=== PATIENT | male | born 1945 | race Caucasian/White ===

== ENCOUNTER 2016-10-12 17:51 | Inpatient (IN) | payer MEDICARE, BC ==
[~2016-10-12 17:51] MED LIST: ADVAIR 25028 BLISTER INH; ALDACTONE25 M1 PO; ALLOPURINOL300 MG PO; AMIODARONE HCL200 M1 PO; AMIODARONE HCL400 MG PO; ANTACID650 MG PO; ANUSOL HC25 MG/SUPP PR; ASPIR-LOW81 MG PO; B-1100 MG PO; BALNEOL CLEANSI89 ML EXT; CHLORASEPTIC LO2 LOZ MM; CORGARD20 M2 PO; CORGARD40 MG PO; COZAAR50 MG PO; CRESTOR5 MG PO; DILTIAZEM 2%; DILTIAZEM 24HR120 MG PO; DILTIAZEM ER120 M1 PO; DILTIAZEM HCL60 MG PO; ELIQUIS2.5 M1 PO; FLAGYL250 M1 PO; FOLIC ACID1 M1 PO; FOLIC ACID1 MG PO; FUROSEMIDE40 MG PO; GLUCOPHAGE1000 MG PO; JANUVIA50 MG PO; LASIX40 M1 PO; LASIX40 MG PO; LEVOTHYROXINE100 MC1 PO; LOSARTAN POTASS50 M1 PO; LOTRISONE CREAM45 GM TP; METOPROLOL TART25 M1 PO; MIRALAX17 G2 PO; MULTIVITAMIN1 TAB PO; MYCOSTATIN15 GM TP; NADOLOL40 M1 PO; NORCO 5-325 TA1 EACH PO; NYSTATIN15 G3 TP; PACERONE200 M1 PO; PACERONE200 MG PO; PAIN RELIEVING28 GM TP; PRADAXA150 MG PO; PRADAXA75 M1 PO; PROTONIX40 M2 PO; PROVENTIL HFA6.7 G1 INH; RENVELA800 M1 PO; SILVADENE20 GM TP; SYMBICORT 160-1 PUFF INH; TYLENOL TA325 MG/TA1 PO; VIBRAMYCIN100 MG/TA1 PO; VITAMIN B-1100 M3 PO; ZEGERID 40 MG C1 CAP PO; ZYLOPRIM100 M1 PO
[2016-10-12] MEDS ORDERED: VITAMIN D35000 UNI2 PO (18:14)
[2016-10-12 18:20] LABS: BASO % 0.9 % (0-2); EOS % 0.4 % (0-7); HCT-HEMATOCRIT 34.8 % (36.0-53.5); HGB-HEMOGLOBIN 11.4 gm/dl (13.5-17.0); IMMATURE GRANULOCYTES ABSOLUTE 0.01 tho/cmm (0-0.03); IMMATURE GRANULOCYTES PERCENT 0.4 % (0-0.3); LYMPH % 3.8 % (20-45); LYMPH ABSOLUTE COUNT 0.1 tho/cmm (0.8-4.5); MCHC MEAN CORPUSCULAR HGB CONC 32.8 % (32.0-36.0); MCV (MEAN CELL VOLUME) 70.2 fl (82.0-96.0); MEAN PLATELET VOLUME 10.7 cmc (9.4-12.4); MONO % 1.7 % (0-12); NEUTROPHIL ABSOLUTE COUNT 2.2 tho/cmm (1.6-8.0); NEUTROPHIL-AUTOMATED 2.2 tho/cmm (1.6-8.0); NEUTROPHILS % 92.8 % (40-80); PLATELET COUNT 134 tho/cmm (150-450); RED BLOOD COUNT 4.96 mil/cmm (4.40-5.70); RED CELL DISTRIBUTION WIDTH 17.3 % (12.4-16.4); WHITE BLOOD COUNT 2.4 tho/cmm (4.0-10.0)
[2016-10-12] MEDS ORDERED: LIPITOR20 M1 PO (18:21)
[2016-10-12] MEDS ORDERED: ZYLOPRIM100 M1 PO (18:23)
[2016-10-12 18:27] LABS: ANION GAP 20 mmol/L (0-20); BLOOD UREA NITROGEN 130 mg/dl (6-24); CARBON DIOXIDE-VENOUS 20 mmol/L (22-32); CHLORIDE 91 mmol/l (96-110); CREATININE 3.85 mg/dl (0.60-1.30); GLUCOSE 166 mg/dL (70-110); SODIUM 124 mmol/L (135-145); eGFR VALUE FOR BLACK 17 mL/Min
[2016-10-12 19:13] LABS: POTASSIUM 6.7 mmol/L (3.7-5.1)
--- NOTE | 2016-10-13 07:14 | NUR ---
10/12 NOC: IV PAIN MEDS GIVEN FAMILY REQUESTS. ADMINISTERED 1mg MORPHINE @ 1140, 3259, 0100, 0211, 0343, 0526 2mg ATIVAN @ 2359 2gtts ATROPINE @ 0347
== END 2016-10-13 08:25 | disposition expired | DRG 682 ==
LOC: EDMED 17:51 → EMR2 21:22 → 5WE 22:22
PROVIDERS: Emergency Medicine; ADMIT Internal Medicine
DX: N17.9 Acute kidney failure, unspecified (principal); G93.41 Metabolic encephalopathy; R18.0 Malignant ascites; C79.9 Secondary malignant neoplasm of unspecified site; K76.6 Portal hypertension; I85.00 Esophageal varices without bleeding; K70.30 Alcoholic cirrhosis of liver without ascites; I48.91 Unspecified atrial fibrillation; Z51.5 Encounter for palliative care; Z79.01 Long term (current) use of anticoagulants; N18.9 Chronic kidney disease, unspecified; J45.909 Unspecified asthma, uncomplicated; E03.9 Hypothyroidism, unspecified; Z95.0 Presence of cardiac pacemaker
CPT/HCPCS: J2060; J2270; J2405